=== PATIENT | female | born 1965 | race Caucasian/White ===

== ENCOUNTER 2019-10-21 17:37 | Outpatient (CLI) | payer BC, SELFPAY ==
--- NOTE | ~2019-10-21 | MM_ITS ---
EXAMINATION: MM screening [facility] w christiana HISTORY: Screening mammogram TECHNIQUE: Craniocaudal and mediolateral oblique 3-D tomosynthesis images were obtained and synthetic 2-D images were generated. CAD analysis was submitted and interpreted. COMPARISON: 02/19/2018, 02/08/2017, 08/25/2015 bilateral digital screening mammogram examinations BREAST PARENCHYMAL COMPOSITION: There are scattered areas of fibroglandular density. FINDINGS: There is no evidence of suspicious mass, calcification, or architectural distortion to sugg est malignancy in either breast. There has been no suspicious interval change. IMPRESSION: 1. No mammographic evidence of malignancy. 2. Recommend routine screening mammography in one year. BI-RADS Category 1: Negative Reviewed, dictated and finalized at location A. STRAPPER
== END 2019-10-21 17:38 | disposition home or self-care (01) ==
LOC: ANHIMG 17:40
PROVIDERS: PCP Emergency Medicine; Visit Provider Emergency Medicine
DX: Z12.31 Encounter for screening mammogram for malignant neoplasm of breast (principal)
CPT/HCPCS: 77063; 77067

== ENCOUNTER 2020-01-13 16:59 | Emergency (ER) | payer BC, SELFPAY ==
--- NOTE | ~2020-01-13 | XR_ITS ---
EXAMINATION: XR knee LT min 4V EXAM DATE: 01/13/2020 17:21 INDICATION: Initial encounter following injury, with pain of the left knee. TECHNIQUE: Left knee frontal, crosstable lateral, orthogonal oblique projections for interpretation. There is no prior study for comparison. FINDINGS: No evidence osteochondral defect or joint body in the left knee joint. There is mild prim adelaida osteoarthritis. There are no acute fractures or dislocations identified. There is no subcutaneou s gas. The soft tissue is unremarkable. There are no radiopaque foreign bodies. No joint effusion . IMPRESSION: Mild left knee osteoarthritis. Reviewed, dictated and finalized at location A.
[2020-01-13 17:01] VITALS: BP 212/76; PULSE 93; RESP 20; TEMP 36.4; O2SAT 99
--- NOTE | 2020-01-13 18:26 | ED.LOWEXIN ---
HPI - Extremity Injury (Lower) General Chief Complaint: Extremity Injury, Lower Stated Complaint: Knee inury Time Seen by Provider: 01/13/20 17:04 History of Present Illness HPI Narrative: Patient is a 54-year-old female who presents ER with left lower extremity pain. Pain is in her distal thigh medially. Patient was attempting to step into a [place] F1 50 when she felt a sudden onset pop and pain. Pain then radiated around the anterior part of her knee. No numbness or tingling to the lower extremity at this time. Has pain with bearing weight. She is able to extend her leg as well as flex but has increased pain with flexion. Related Data Home Medications Medication Instructions Recorded Confirmed albuterol sulfate 90 mcg/actuation 1 inhalation INHALATION Q4H 12/09/19 aerosol inhaler fluticasone furoate 100 1 inhalation INHALATION DAILY 12/09/19 mcg-vilanterol 25 mcg/dose inhalation powder fluticasone propionate 50 1 spray NASAL DAILY 12/09/19 mcg/actuation nasal spray,suspension levothyroxine 01/13/20 losartan-hydrochlorothiazide tablet 01/13/20 Allergies Allergy/AdvReac Type Severity Reaction Status Date / Time mold Allergy Unknown Sneezing Verified 01/13/20 17:15 No Known Allergies Allergy Verified 01/13/20 17:15 Review of Systems Review of Systems: All systems reviewed & are unremarkable except as noted in HPI and below Musculoskeletal: Musculoskeletal: Denies arthralgias and Denies joint swelling Comments: New posterior thigh pain left side medially PMFSH Past Medical History Medical History (Updated 01/13/20 @ 18:42 by Poncho Palma MD) Atopy Hypertension BARAK (obstructive sleep apnea) Rhinitis SOB (shortness of breath) Surgical History Surgical History (Updated 12/09/19 @ 11:54 by Ling Stringer CMA) H/O tubal ligation History of cholecystectomy Family History Family History (Updated 11/19/17 @ 09:28 by DOCTOR UNKNOWN) Mother Hypertension Grandparent Hypertension Family history of malignant neoplasm Family history of Parkinson's disease Father Diabetes mellitus Sibling Hypertension Family history of chronic obstructive pulmonary disease Family history of sleep apnea Social History Social History Smoking status: Never smoker Second hand tobacco smoke exposure: Yes Alcohol intake: never Exam Narrative: Exam Narrative: GENERAL: Well-appearing, morbidly obese, and in no acute distress. HEAD: Normocephalic, atraumatic. EXTREMITIES: Focused exam of the left lower extremity reveals point tenderness to posterior knee at the insertion of the hamstring to the knee. Patient has full extension and near full flexion. Unable to palpate the hamstring due to body habitus. No joint line tenderness or notable effusion to the knee. SKIN: Warm, dry, no rash. NEURO: No focal deficits. Alert and oriented x3. PSYCH: Normal mood and affect. Course Course Emergency Course: Normal x-ray other than arthritis. Increase concerned that patient may have a partial hamstring tear. Range of motion is intact but she is point tender. Knee immobilizer did not fit on the patient's leg and she has crutches for home which she will use. Dr. Varma contacted and will arrange follow-up. Vital Signs Vital signs: Vital Signs Temperature 97.5 F L 01/13/20 17:01 Pulse Rate 93 01/13/20 17:01 Respiratory Rate 20 01/13/20 17:01 Blood Pressure 212/76 H 01/13/20 17:01 Pulse Oximetry 99 01/13/20 17:01 Temperature 97.5 F L 01/13/20 17:01 Pulse Rate 93 01/13/20 17:01 Respiratory Rate 20 01/13/20 17:01 Blood Pressure 212/76 H 01/13/20 17:01 Pulse Oximetry 99 01/13/20 17:01 Discharge Plan Discharge Clinical Impression: Hamstring injury Qualifiers: Encounter type: initial encounter Laterality: left Qualified Code(s): S76.302A - Unspecified injury of muscle, fascia and tendon of the posterior muscle group at thigh level, left thigh, initial
== END 2020-01-13 18:45 | disposition home or self-care (01) ==
PROVIDERS: Emergency Provider Emergency Medicine; PCP Emergency Medicine
DX: S76.302A Unspecified injury of muscle, fascia and tendon of the posterior muscle group at thigh level, left thigh, initial encounter (principal); I10 Essential (primary) hypertension; G47.33 Obstructive sleep apnea (adult) (pediatric); X50.9XXA Other and unspecified overexertion or strenuous movements or postures, initial encounter
CPT/HCPCS: 73564; 99283

== ENCOUNTER 2020-04-14 13:02 | Outpatient (CLI) | payer BC, SELFPAY ==
--- NOTE | ~2020-04-14 | US_ITS ---
EXAMINATION: US thyroid EXAM DATE: 04/14/2020 14:09 INDICATION: Thyroid nodule. TECHNIQUE: Multiple grayscale and Doppler images of the thyroid were obtained (by a technologist who performed the scan) and subsequently reviewed. Individual nodules and recommendations may be reporte d in accordance with TI-RADS system as designated by the 2017 ACR White Paper TI-RADS committee. Comp arison is made to prior examination from 04/10/2019. FINDINGS: The right thyroid lobe measures 4.0 x 1.7 x 1.4 cm, the left measuring 4.0 x 1.8 x 1.3 cm. There is d iffusely heterogeneous thyroid echogenicity. Difficult to pick out individual nodules given the diffu se heterogeneity but suspect a portion of the previously measured right thyroid lobe nodule was measu red this time at 5 mm on this exam. Overall, this region does not appear significantly changed at abo ut 1.2 cm maximal dimension. IMPRESSION: Heterogeneous thyroid with probable small right thyroid lobe nodule unchanged. Consider w idened 2 year follow-up thyroid ultrasound. Reviewed, dictated and finalized at location A. IMPRESSION: Heterogeneous thyroid with probable small right thyroid lobe nodule unchanged. Consider widened 2 year follow-up thyroid ultrasound.
== END 2020-04-14 13:03 | disposition home or self-care (01) ==
LOC: ANHIMG 13:13
PROVIDERS: PCP Emergency Medicine; Visit Provider Internal Medicine Endocrinology, Diabetes & Metabolism
DX: E04.1 Nontoxic single thyroid nodule (principal)
CPT/HCPCS: 76536

== ENCOUNTER 2021-02-10 16:42 | Outpatient (CLI) | payer BC, SELFPAY ==
--- NOTE | ~2021-02-10 | MM_ITS ---
EXAMINATION: MM screening [facility] BI w christiana HISTORY: Screening TECHNIQUE: Craniocaudal and mediolateral oblique 3-D tomosynthesis images were obtained and synthetic 2-D images were generated. CAD analysis was submitted and interpreted. COMPARISON: No prior mammogram is available for comparison at this institution. BREAST PARENCHYMAL COMPOSITION: There are scattered areas of fibroglandular density. FINDINGS: There is no evidence of suspicious mass, calcification, or architectural distortion to sugg est malignancy in either breast. There has been no suspicious interval change. IMPRESSION: 1. No mammographic evidence of malignancy. 2. Recommend routine screening mammography in one year. BI-RADS Category 1: Negative Reviewed, dictated and finalized at location A.
== END 2021-02-10 16:43 | disposition home or self-care (01) ==
LOC: ANHIMG 16:45
PROVIDERS: PCP Emergency Medicine; Visit Provider Emergency Medicine
DX: Z12.31 Encounter for screening mammogram for malignant neoplasm of breast (principal)
CPT/HCPCS: 77063; 77067

== ENCOUNTER 2022-01-05 16:41 | Outpatient (CLI) | payer BC, SELFPAY ==
[2022-01-05 17:22] LABS: Basophils Absolute Auto 0.1 K/mm3 (0.0-0.1); Basophils Percent Auto 0.7 % (0.2-1.2); Eosinophils Absolute Auto 0.6 K/mm3 (0-0.3); Eosinophils Percent Auto 4.4 % (0-4.4); Hematocrit 36.8 % (37.0-47.0); Hemoglobin 11.7 g/dL (12.0-15.0); Immature Granulocyte Absolute 0.05 K/mm3 (0.00-0.031); Immature Granulocyte Percent A 0.4 % (0-0.5); Lymphocytes Absolute Auto 3.17 K/mm3 (0.9-3.2); Lymphocytes Percent Auto 23.4 % (18.3-44.2); Mean Corpuscular HGB Conc 31.8 g/dl (32-36); Mean Corpuscular Volume 97.4 fl (80-100); Monocytes Absolute Auto 1.4 K/mm3 (0.1-0.6); Monocytes Percent Auto 10.5 % (2.6-8.5); Neutrophils Absolute Auto 8.2 K/mm3 (1.3-6.7); Neutrophils Percent Auto 60.6 % (45.5-73.1); Platelet Count Result 319 k/mm3 (150-375); Red Blood Count 3.78 M/mm3 (4.2-5.4); Red Cell Distribution Width 14.2 % (11.5-14.5); White Blood Count 13.5 K/mm3 (4.5-10.0)
== END 2022-01-05 16:42 | disposition home or self-care (01) ==
LOC: ANHLAB 16:47
PROVIDERS: PCP Emergency Medicine; Visit Provider Internal Medicine Hematology & Oncology
DX: D72.829 Elevated white blood cell count, unspecified (principal)
CPT/HCPCS: 36415; 85025; 88184

== ENCOUNTER 2022-07-26 15:01 | Outpatient (CLI) | payer BC, SELFPAY ==
[2022-07-26 15:15] LABS: Basophils Absolute Auto 0.1 K/mm3 (0.0-0.1); Basophils Percent Auto 0.7 % (0.2-1.2); Eosinophils Absolute Auto 0.4 K/mm3 (0-0.3); Hematocrit 37.1 % (37.0-47.0); Hemoglobin 11.7 g/dL (12.0-15.0); Immature Granulocyte Absolute 0.07 K/mm3 (0.00-0.031); Immature Granulocyte Percent A 0.5 % (0-0.5); Lymphocytes Absolute Auto 3.29 K/mm3 (0.9-3.2); Lymphocytes Percent Auto 25.2 % (18.3-44.2); Mean Corpuscular HGB Conc 31.5 g/dl (32-36); Mean Corpuscular Hemoglobin 32.2 pg (26-34); Mean Corpuscular Volume 102.2 fl (80-100); Monocytes Absolute Auto 1.3 K/mm3 (0.1-0.6); Monocytes Percent Auto 9.7 % (2.6-8.5); Neutrophils Absolute Auto 7.9 K/mm3 (1.3-6.7); Neutrophils Percent Auto 60.9 % (45.5-73.1); Platelet Count Result 297 k/mm3 (150-375); Red Blood Count 3.63 M/mm3 (4.2-5.4); Red Cell Distribution Width 13.8 % (11.5-14.5)
== END 2022-07-26 15:02 | disposition home or self-care (01) ==
LOC: ANHLAB 15:03
PROVIDERS: PCP Emergency Medicine; Visit Provider Internal Medicine Hematology & Oncology
DX: D72.829 Elevated white blood cell count, unspecified (principal)
CPT/HCPCS: 36415; 85025

== ENCOUNTER 2023-06-19 15:24 | Outpatient (CLI) | payer BC, SELFPAY ==
--- NOTE | ~2023-06-19 | US_ITS ---
Thyroid ultrasound. Clinical History: Thyroid nodule COMPARISON: 04/14/2020 Findings: Real-time sonography of the thyroid gland was performed. The right lobe measures 5.0 x 1.8 x 1.6 cm. The left lobe measures 4.5 x 1.5 x 1.8 cm. The isthmus is 4 mm in AP diameter. Thyroid parenchyma is diffusely heterogeneous. There is a suspected 1 cm hypoechoic solid nodule at t he left lower pole. Impression: Possible 1 cm TR-4 nodule at the left lower pole. Annual follow-up advised.. Reviewed, dictated and finalized at location M. Impression: Possible 1 cm TR-4 nodule at the left lower pole. Annual follow-up advised..
== END 2023-06-19 15:25 ==
LOC: MICIMG 15:25
PROVIDERS: PCP Emergency Medicine; Visit Provider Emergency Medicine
DX: E04.1 Nontoxic single thyroid nodule (principal)
CPT/HCPCS: 76536

== ENCOUNTER 2023-06-28 16:21 | Outpatient (CLI) | payer BC, SELFPAY ==
--- NOTE | ~2023-06-28 | MM_ITS ---
EXAMINATION: MM screening [facility] BI w christiana HISTORY: Screening TECHNIQUE: Craniocaudal and mediolateral oblique 3-D tomosynthesis images were obtained and synthetic 2-D images were generated. CAD analysis was submitted and interpreted. COMPARISON: Comparison to multiple prior studies sequentially, with oldest reviewed study dated 08/10. BREAST PARENCHYMAL COMPOSITION: There are scattered areas of fibroglandular density. FINDINGS: There is no evidence of suspicious mass, calcification, or architectural distortion to sugg est malignancy in either breast. There has been no suspicious interval change. IMPRESSION: 1. No mammographic evidence of malignancy. 2. Recommend routine screening mammography in one year. BI-RADS Category 1: Negative Reviewed, dictated and finalized at location A.
== END 2023-06-28 16:22 | disposition home or self-care (01) ==
PROVIDERS: PCP Emergency Medicine; Visit Provider Emergency Medicine
DX: Z12.31 Encounter for screening mammogram for malignant neoplasm of breast (principal)
CPT/HCPCS: 77063; 77067

== ENCOUNTER 2025-02-04 15:26 | Outpatient (CLI) | payer BC, SELFPAY ==
--- NOTE | ~2025-02-04 | MM_ITS ---
EXAMINATION: MM screening [facility] BI w christiana HISTORY: Screening TECHNIQUE: Craniocaudal and mediolateral oblique 3-D tomosynthesis images were obtained and synthetic 2-D images were generated. CAD analysis was submitted and interpreted. COMPARISON: No prior mammogram is available for comparison at this institution. BREAST PARENCHYMAL COMPOSITION: Not dense: There are scattered areas of fibroglandular density. FINDINGS: There is no evidence of suspicious mass, calcification, or architectural distortion to sugg est malignancy in either breast. There has been no suspicious interval change. IMPRESSION: 1. No mammographic evidence of malignancy. 2. Recommend routine screening mammography in one year. BI-RADS Category 1: Negative Reviewed, dictated and finalized at location A.
--- OUTSIDE RECORDS SUMMARY | 2025-02-04 15:30 | XMS_ITS | Clinical Summary ---
Author Organization [facility] Myles Camilo Address [address] [place] [address] Care Team Providers Care Lead Network Architect Name Role Phone Willy Hardy MD Primary Care Provider [phone] Allergies No known active allergies Medications carvediloL (COREG) 12.5 mg tablet carvedilol 12.5 mg tablet Active cyanocobalamin (VITAMIN B-12) 1,000 mcg Tablet, Sublingual every 24 hours. Act dre metFORMIN (GLUCOPHAGE XR) 500 mg Extended Release 24 hour tablet Take 500 mg by mouth 2 times daily with meals. 2 Active Multivitamin Capsule Take 1 Capsule by mouth daily. Active spironolactone (ALDACTONE) 25 mg tablet 50 mg. 0 Active Entresto 97-103 mg Tablet Take 1 Tablet by mouth 2 times daily. 2 Active furosemide (LASIX) 40 mg tablet Take 40 mg by mouth. 2 Active levothyroxine 175 mcg tablet TAKE 1 TABLET BY MOUTH DAILY IN THE MORNING ON AN EMPTY STOMACH 2 Active Jardiance 10 mg tablet Take 10 mg by mouth daily. 2 Active ergocalciferol (VITAMIN D2) 50,000 unit capsule Take 50,000 Units by mouth every 7 days. 2 Active albuterol sulfate 90 mcg/Actuation inhaler TAKE 2 PUFFS BY MOUTH EVERY 4 TO 6 HOURS NEEDED 2 Active omega-3 fatty acids-fish oil 300-1,000 mg Capsule Take 1 Capsule by mouth daily. Active Active Problems Problem Noted Date Diagnosed Date Chronic anemia 12/13/2021 Leukocytosis (leucocytosis) 12/13/2021 Family History Relation Name Status Comments Brother Alive Daughter Alive Father Alive Mother Alive Sister Alive Son Alive Social History Tobacco Use Types Packs/Day Years Used Date Smoking Tobacco: Never Smokeless Tobacco: Never Tobacco Cessation:Counseling Given: Not Answered Alcohol Use Standard Drinks/Week Comments Never 0 (1 standard drink = 0.6 oz pur e alcohol) Comments Unknown Sex and Gender Information Value Date Recorded Sex Assigned at Not on file Legal Sex Female 11:27 AM DATE PITTER Gender Identity Not on file Sexual Orientation Not on file Last Filed Vital Signs Vital Sign Reading Time Taken Comments Blood Pressure 137/67 03/28/2023 3:02 PM CDT Pulse 87 03/28/2023 2:59 PM CDT Temperature 36.3 C (97.3 F) 03/28/2023 2:59 PM CDT Respiratory Rate 10 03/28/2023 2:59 PM CDT Oxygen Saturation 98% 03/28/2023 2:59 PM CDT Inhaled Oxygen Concentration - - Weight 138.3 kg (305 lb) 03/28/2023 2:59 PM CDT Height 172.7 cm (5' 8) 01/11/2022 3:32 PM CDT Body Mass Index 46.38 01/11/2022 3:32 PM CDT Plan of Treatment Health Maintenance Due Date Last Done Comments DTAP/TDAP/TD VACCINES (1 - Tdap) 11/08/1982 HPV/Cotest (21-29) 11/08/1984 CERVICAL CANCER SCREENING 11/08/1993 HPV/Cotest (30-65) 11/08/1993 PAP SMEAR 11/08/1993 BREAST CANCER SCREENING 2003 COLORECTAL SCREENING 11/08/2008 Colorectal Cancer Screening 11/08/2008 FIT-DNA Q 3 years 11/08/2008 FIT/FOBT Q 1 year 11/08/2008 Flex Sig/CT Colonography Q 5 years 11/08/2008 ZOSTER VACCINE (1 of 2) 11/08/2013 RSV VACCINE (60+ or ) (1 - Risk 60-74 years 1-dose series) 2023 INFLUENZA VACCINE (#1) 2024 Insurance [facility] BLUE ACCESS/TRUE BLUE PPO Care Teams Lead Network Architect Relationship Specialty Start Date End Date Willy Hardy MD [address] [place] [phone] PCP - General Emergency Medicine 12/13/21
== END 2025-02-04 15:27 | disposition home or self-care (01) ==
LOC: ANHIMG 15:28
PROVIDERS: PCP Emergency Medicine; Visit Provider Emergency Medicine
DX: Z12.31 Encounter for screening mammogram for malignant neoplasm of breast (principal)
CPT/HCPCS: 77063; 77067